=== PATIENT | male | born 1965 | race Caucasian/White ===

== ENCOUNTER 2016-11-15 08:46 | Emergency (ER) | payer BC, OTHER ==
[~2016-11-15] VITALS: Ht 177.8 cm; Wt 117.9 kg
[2016-11-15] MEDS ORDERED: PRAV10TA PO (09:24)
[2016-11-15] MEDS ORDERED: LISI-538 PO (09:24)
[2016-11-15] MEDS ORDERED: LEVO137T2 PO (09:24)
[2016-11-15] MEDS ORDERED: NAPROXEN 250 MG TAB PO ONE (10:00)
[2016-11-15] MEDS ORDERED: MOBI7.5T10 PO (10:32)
[2016-11-15] MEDS ORDERED: CLIN1CAP5 PO (10:53)
--- NOTE | 2016-11-15 10:54 | REP ---
DEEP VENOUS ULTRASONOGRAPHY RIGHT THIGH, RULE OUT DVT: REASON: Pain and swelling. TECHNIQUE: Multiple ultrasonographic images of the deep venous structures of the thigh were obtained from the common femoral vein to the popliteal vein along with Doppler interrogation and color flow Doppler images. FINDINGS: There is no abnormal echogenic material seen within any of the visualized deep venous structures that would suggest acute thrombosis. Coaptation is unremarkable throughout. Doppler interrogation shows an expected response to respiratory variability and augmentation. The color flow images show what appears to be a normal vascular pattern throughout. IMPRESSION: There is no ultrasonographic evidence of deep venous thrombosis involving any of the visualized deep venous structures of the right thigh, as described above. Signed by Blake Meneses DO 11/15/2016 11:30 A
--- NOTE | 2016-11-15 10:58 | REP ---
REASON: Pain and swelling. COMPARISON: None. FINDINGS: The joint spaces are symmetric and relatively well maintained. There is no evidence of acute fracture or destructive osseous lesion. IMPRESSION: Negative. Signed by Blake Meneses DO 11/15/2016 11:31 A
[2016-11-15] MEDS ORDERED: CLINDAMYCIN 150 MG CAP PO ONE (11:00)
[2016-11-15 11:19] VITALS: BP 158/90
== END 2016-11-15 11:20 | disposition home or self-care (01) ==
LOC: M ED 09:49
DX: L03.115 Cellulitis of right lower limb (principal); I10 Essential (primary) hypertension; E78.00 Pure hypercholesterolemia, unspecified; E03.9 Hypothyroidism, unspecified; M54.9 Dorsalgia, unspecified; Z79.899 Other long term (current) drug therapy